=== PATIENT | male | born 1955 | race Caucasian/White ===

== ENCOUNTER → 2016-10-08 | Outpatient (CLI) | payer BC ==
[~2016-10-08] MED LIST: AMINOPHYLLINE 250 MG/10 ML VIAL IV ONE; REGADENOSON 0.4 MG/5 ML SYRINGE IV ONE
--- NOTE | 2016-10-08 11:45 | EST ---
DATE OF SERVICE: 10/08/2016 AGE: 61Y SEX: M HT: 5'8" WT: 248 lbs. Protocol Vinayak: Other: Lexiscan Cardiolite Stage: Dur. of Exercise: *Heart Rate Blood Pressure *Rest: 68 Rest: 103/52 * *Max. Achieved: 83 Maximum BP: 105/57 85% PMHR: 134 100% PMHR: 158 *METS: INDICATIONS: Chest pain. MEDICATIONS: The test is being done to evaluate symptoms of chest pain. Baseline EKG showed sinus rhythm with normal WA interval and QRS duration. Blood pressure at rest is 103/52 with a pulse rate of 68. A standard dose of Lexiscan was infused. EKGs taken during and after infusion did not reveal any significant changes from the baseline. FINAL IMPRESSION: 1. Negative Lexiscan stress test. 2. Patient did not experience any chest pain. 3. Report on the nuclear images to be given by the radiologist.
--- NOTE | 2016-10-08 13:41 | NM ---
EXAMINATION TYPE: NM stress Lexiscan cardiolite DATE OF EXAM: 10/08/2016 12:12 PM COMPARISON: Previous study dated 07/15/2014 HISTORY: Chest pain TECHNIQUE: After the intravenous administration of 10.36 mCi Tc 99m Sestamibi - Cardiolite resting S PECT images acquired 45 minutes post injection. The patient received 0.4mg Lexiscan, 27.5 mCi Tc 99m Sestamibi - Stress images obtained [address] injection FINDINGS: There is good uptake of radiopharmaceutical by the left ventricle without fixed defect or convincing inducible ischemic change. Wall motion is normal with an ejection fraction of 67%. IMPRESSION: I do not see convincing evidence of inducible ischemic change at this time.
--- NOTE | 2016-10-09 14:55 | EST ---
DATE OF SERVICE: 10/08/2016 AGE: 61Y SEX: M HT: 5'8" WT: 248 lbs. Protocol Vinayak: Other: Lexiscan Cardiolite Stage: Dur. of Exercise: *Heart Rate Blood Pressure *Rest: 68 Rest: 103/52 * *Max. Achieved: 83 Maximum BP: 105/57 85% PMHR: 134 100% PMHR: 158 *METS: INDICATIONS: Chest pain. MEDICATIONS: ADDENDUM: In the postoperative exercise period, patient developed hypotension and became pale and started feeling short of breath. He was also dizzy. He was given IV aminophylline 50 mg and also given IV fluids 250 mL. Gradually his symptoms abated and his blood pressure was stabilized. Patient was sent home in stable condition. FINAL IMPRESSION: Hypotension in the postexercise period most probably secondary to Lexiscan. Recovered with IV Aminophyllin and IV fluids.
== END | disposition home or self-care (01) ==
LOC: RADNMMAIN 09:03
PROVIDERS: ATTEND Family Medicine
DX: R07.9 Chest pain, unspecified (principal)
CPT/HCPCS: 93017; 78452; A9500; J2785

== ENCOUNTER → 2017-01-31 | Outpatient (CLI) | payer BC ==
[2017-01-31 07:44] LABS: Blood Urea Nitrogen 15 mg/dL (9-20); Non-African American GFR(MDRD) >60 (>60 ml/min/1.73 sqM)
--- NOTE | 2017-01-31 11:09 | CT ---
EXAMINATION TYPE: CT chest w con DATE OF EXAM: 01/31/2017 8:11 AM COMPARISON: 03/15/2015 HISTORY: 61-year-old male SOB TECHNIQUE: Contiguous axial scanning of the chest after the administration of 100 mL of Omnipaque 300 . Coronal/sagittal reconstructions performed. CT DLP: 739mGycm. Automatic exposure control utilized for a dose reduction. FINDINGS: The heart is normal size without pericardial effusion. Coronary vessel calcifications are present and are remarkable for coronary artery disease. Aorta is normal caliber with conventional arch vessel branching anatomy. No thoracic lymphadenopathy. Evaluation of the lung shows mild diffuse bronchial wall thickening and some strandy atelectasis at t he left base, possibly scarring as well given some of these opacities were present on prior exam. No consolidation or pleural effusion. Visualized upper abdomen redemonstrates a 1.1 cm nodule within the right adrenal gland most compatibl e with a benign adrenal adenoma given stability. Bones: Endplate spondylosis throughout the mid to lower thoracic spine. No osseous destructive proces s. IMPRESSION: 1. Mild diffuse bronchial wall thickening. Correlate for bronchitis or chronic asthma. 2. Strandy atelectasis and scarring at the left base. 3. Stable 1.1 cm right adrenal adenoma.
== END | disposition home or self-care (01) ==
LOC: RADCTMAIN 07:08
PROVIDERS: ATTEND Family Medicine
DX: J98.11 Atelectasis (principal); J98.4 Other disorders of lung; J98.09 Other diseases of bronchus, not elsewhere classified
CPT/HCPCS: 82565; 84520; 71260; Q9967

== ENCOUNTER 2018-04-13 10:47 | Emergency (ER) | payer BC ==
[2018-04-13] MEDS ORDERED: DIPH,PERTUS(ACELL)TETVAC-LF 0.5 ML VIAL IM ONE (11:19)
[2018-04-13] MEDS ORDERED: ceFAZolin IN SWFI 2 GM/20 ML SYRINGE IVP ONE (11:26)
--- NOTE | 2018-04-13 11:26 | ED ---
Wound/Laceration HPI - General Chief Complaint: Wound/Laceration Stated Complaint: lt hand finger lacs Time Seen by Provider: 04/13/18 11:12 Source: patient Mode of arrival: ambulatory Limitations: no limitations - History of Present Illness Initial Comments: 62 years old male was cutting branches of the trees in the meanwhile he injured his left hand third and the 4 fingers he has a laceration on the distal area of the third and fourth fingers he is not sure if his tetanus is up-to-date he denies any other injuries and review of system is unremarkable - Related Data Home Medications Medication Instructions Recorded Confirmed Albuterol Sulfate [Proair Hfa] 1 - 2 puff INHALATION RT-Q6H PRN 05/21/15 Atorvastatin [Lipitor] 20 mg PO HS 05/21/15 04/13/18 Budesonide/Formoterol Fumarate 2 puff INHALATION RT-DAILY PRN 05/21/15 04/13/18 [Symbicort 160-4.5 Mcg Inhaler] Enalapril/Hydrochlorothiazide 0.5 tab PO DAILY 05/21/15 04/13/18 [Vaseretic 10-25 mg] HYDROcodone/APAP 10-325MG [[facility] 1 tab PO Q6H PRN 05/21/15 04/13/18 10] Albuterol Nebulized [Ventolin 1 applicate INHALATION RT-Q6H PRN 08/28/15 Nebulized] Invokana (Unknown Dose) 1 tab PO QAM 04/13/18 04/13/18 Previous Rx's Medication Instructions Recorded Amoxic-Pot Clav 875-125Mg 1 tab PO Q12HR #10 tablet 04/13/18 [Augmentin 875-125] Allergies Allergy/AdvReac Type Severity Reaction Status Date / Time No Known Allergies Allergy Verified 04/13/18 11:10 Review of Systems ROS Statement: Those systems with pertinent positive or pertinent negative responses have been documented in the HPI. ROS Other: All systems not noted in ROS Statement are negative. Past Medical History Past Medical History: COPD, Diabetes Mellitus, GERD/Reflux, Hyperlipidemia, Hypertension Additional Past Medical History / Comment(s): hx ulcer age 11, diverticulitis, diarrhea, pain neck radiating down left arm History of Any Multi-Drug Resistant Organisms: None Reported Past Surgical History: Adenoidectomy, Orthopedic Surgery, Tonsillectomy Additional Past Surgical History / Comment(s): rt knee surgery, rectal fissure repair, [facility] pain clinic, lt thumb trigger finger release, colonosocpy, Past Anesthesia/Blood Transfusion Reactions: Family History of Problems w/ Anesthesia, Postoperative Nausea & Vomiting (PONV) Additional Past Anesthesia/Blood Transfusion Reaction / Comment(s): BP dropped and got nauseated with last pain clinic procedure Past Psychological History: Anxiety Smoking Status: Never smoker Past Alcohol Use History: None Reported Past Drug Use History: None Reported - Past Family History Brother(s) Family Medical History: Coronary Artery Disease (CAD), Diabetes Mellitus General Exam - General Exam Comments Initial Comments: General: The patient is awake and alert, in no distress, and does not appear acutely ill. Skin: Skin is warm and dry and no rashes or lesions are noted except his third and fourth fingers third and fourth fingertips have recontacted and lacerations near the nail bed is intact x-ray revealed a hairline fracture at the base of the distal phalanx Eye: Pupils are equal, round and reactive to light, extra-ocular movements are intact; there is normal conjunctiva bilaterally. Ears, nose, mouth and throat: There are moist mucous membranes and no oral lesions. Neck: The neck is supple, there is no tenderness or JVD. Cardiovascular: There is a regular rate and rhythm. No murmur, rub or gallop is appreciated. Respiratory: To auscultation bilateral, no wheezing no rhonchi no distress respiratory jane noticed Gastrointestinal: Soft, non-distended, non-tender abdomen without masses or organomegaly noted. There is no rebound or guarding present. Bowel sounds are unremarkable. Back: There is no tenderness to palpation in the midline. There is no obvious deformity. Musculoskeletal: Normal ROM, no tenderness, There is no pedal edema. There is no calf tenderness or swelling. No cords were appreciated. Neurological: CN II-XII intact, Cranial nerves III through XII are intact. There are no obvious motor or sensory deficits. Coordination appears grossly intact. Speech is normal. Psychiatric: Cooperative, appropriate mood & affect, normal judgment. Limitations: no limitations Course Vital Signs 04/13/18 10:51 Temperature 97.6 F Pulse Rate 89 Respiratory 16 Rate Blood Pressure 162/92 O2 Sat by Pulse 98 Oximetry for the hairline fracture of the distal part of his third finger we did the aluminum splint to support the nondisplaced fracture. Procedures - Laceration Laceration #1 Consent Obtained: verbal consent Time Out Performed: Yes Site: hand Size (cm): 4 Description: irregular Depth: simple, single layer Anesthetic Used: lidocaine 1% Anesthesia Technique: nerve block Pre-repair: wound explored, irrigated extensively Type of Sutures: nylon Size of Sutures: 4-0, 5-0 Technique: simple, interrupted Complications: bleeding Patient Tolerated Procedure: well (Required 7 stitches to approximate the skin him a part of the skin was missing and part of the skin was shredded) Laceration #2 Consent Obtained: verbal consent Time Out Performed: Yes Indication: laceration Site: hand Size (cm): 4 Description: irregular Depth: simple, single layer Anesthetic Used: lidocaine 1% Anesthesia Technique: local infiltration Pre-repair: wound explored, irrigated extensively Type of Sutures: nylon Size of Sutures: 4-0, 5-0 Technique: simple, interrupted Complications: bleeding Disposition Clinical Impression: Laceration, Finger fracture Disposition: HOME SELF-CARE Condition: Good Instructions: Laceration (ED) Additional Instructions: The hand elevated to reduce the swelling use Tylenol 1 g by mouth every 6 when necessary for the pain returned to the ER if symptoms get worse Prescriptions: Amoxic-Pot Clav 875-125Mg [Augmentin 875-125] 1 tab PO Q12HR #10 tablet Is patient prescribed a controlled substance at d/c from ED?: No Referrals: Timothy Nieto MD [Primary Care Provider] - 1-2 days Barney Cooper DO [Doctor of Osteopathic Medicine] - 1-2 days
[2018-04-13] MEDS ORDERED: LIDOCAINE 1% INJ 10MG/ML (20 ML MDV) SQ STA (11:27)
[2018-04-13] MEDS ORDERED: ceFAZolin 1,000 MG in DEXTROSE/WATER 1 50ML.BAG IVPB STA (11:28)
--- NOTE | 2018-04-13 11:53 | XR ---
EXAMINATION TYPE: XR hand complete LT DATE OF EXAM: 04/13/2018 COMPARISON: NONE HISTORY: Laceration to the third and fourth digits TECHNIQUE: Three views are submitted. FINDINGS: Soft tissue injury involving the distal margin of the third and fourth digits. Arthropathy of the fir st MCP joint. Arthropathy of the DIP joint of the third digit. Tiny bony density along the ulnar surf shawn distal phalanx third digit which may represent a small chip fracture. It does appear to be within linear lucency through the cortex of the distal phalanx on the frontal and oblique views. IMPRESSION: 1. Soft tissue injury with findings suggestive of a nondisplaced hairline fracture near the base of t he distal phalanx third digit.
[2018-04-13] MEDS ORDERED: ceFAZolin 1,000 MG VIAL IM STA (12:17)
[2018-04-13 14:25] VITALS: BP 123/77; PULSE 71; RESP 18; TEMP 98.1
== END 2018-04-13 14:25 | disposition home or self-care (01) ==
LOC: EC 10:47
DX: S62.663A Nondisplaced fracture of distal phalanx of left middle finger, initial encounter for closed fracture (principal); S61.213A Laceration without foreign body of left middle finger without damage to nail, initial encounter; S61.215A Laceration without foreign body of left ring finger without damage to nail, initial encounter; S61.412A Laceration without foreign body of left hand, initial encounter; J44.9 Chronic obstructive pulmonary disease, unspecified; E11.9 Type 2 diabetes mellitus without complications; E78.5 Hyperlipidemia, unspecified; I10 Essential (primary) hypertension; Z23 Encounter for immunization; Z98.890 Other specified postprocedural states; Z79.84 Long term (current) use of oral hypoglycemic drugs; Z79.899 Other long term (current) drug therapy; W29.3XXA Contact with powered garden and outdoor hand tools and machinery, initial encounter; Y93.89 Activity, other specified
CPT/HCPCS: 73130; 90715; 99283; 12004; 90471; 96372; J0690; J2001

== ENCOUNTER → 2018-07-22 | Outpatient (CLI) | payer BC ==
--- NOTE | 2018-07-23 04:19 | MR ---
EXAMINATION TYPE: MR shoulder RT wo con DATE OF EXAM: 07/22/2018 COMPARISON: None HISTORY: Rt shoulder Pain, Incomplete rotator cuff tear or rupture TECHNIQUE: Multiplanar, multisequence imaging of the right shoulder is performed without contrast. FINDINGS: Subscapularis tendon is intact. There is some fluid around the biceps tendon. There is mild shoulder joint effusion. The glenoid lala appear intact. Biceps tendon appears intact. There is obliteration of the subacromial joint space. There is retraction of the supraspinatus tendon . There is extensive spurring at the acromion and the AC joint. I see no fracture. There is no focal bone destruction. IMPRESSION: Severe subacromial joint space narrowing and impingement with large rotator cuff tear and retraction of the supraspinatus tendon. Shoulder joint effusion.
== END | disposition home or self-care (01) ==
LOC: RADMRIMAIN 21:09
PROVIDERS: ATTEND Family Medicine
DX: M75.111 Incomplete rotator cuff tear or rupture of right shoulder, not specified as traumatic (principal); M25.811 Other specified joint disorders, right shoulder

== ENCOUNTER → 2018-09-11 | Day surgery (SDC) | payer BC ==
[2018-09-09 15:50] VITALS: BMI 34.2
--- NOTE | 2018-09-10 11:23 | HP ---
HISTORY AND PHYSICAL CHIEF COMPLAINT: Right shoulder pain. HISTORY OF PRESENT ILLNESS: The patient is a 63-year-old right-hand dominant gentleman on disability who presents with right shoulder pain, has progressed over the past 6 months. He notes it started after lifting weights. He is having pain with attempted overhead use. He notes significant weakness as well. He is having significant night symptoms. He has tried an injection along with medications with only partial temporary relief. PAST MEDICAL HISTORY: Significant for COPD, hypertension, and arthritis. PAST SURGICAL HISTORY: Significant for trigger finger release. CURRENT MEDICATIONS: 1. Enalapril. 2. Gabbs. 3. Symbicort. 4. Atorvastatin. He denies drug allergies. FAMILY HISTORY: Significant for heart disease. SOCIAL HISTORY: Significant for previous tobacco use; however, he quit in 1974. REVIEW OF SYSTEMS: A 16 point review of systems otherwise reviewed and is noncontributory. PHYSICAL EXAMINATION: On examination, the patient is approximately 5 foot 8, 225 pounds of endomorphic habitus. HEENT exam is nonfocal. Neck is supple. On examination of the right shoulder, he is tender about the anterior subacromial space. He has moderate subacromial crepitus. Active range of motion, forward elevation 125 degrees, external rotation with arm at side 45 degrees, internal rotation to L2. He has a positive impingement, positive Neer test, and positive Speed test. His distal neurovascular exam otherwise appears intact in the right upper extremity. MRI report from 07/22/2018, the right shoulder shows a retracted large rotator cuff tear. There is significant fluid around the proximal biceps as well. IMPRESSION: 1. Right shoulder impingement with retracted large rotator cuff tear. 2. Right proximal bicipital tendinosis. 3. History of chronic obstructive pulmonary disease. RECOMMENDATIONS: I talked to the patient at length regarding his condition and treatment options. At this point, he remains quite symptomatic and limited because of pain and weakness. After thorough discussion, he opts to proceed with surgery. We will plan to proceed with arthroscopic evaluation with possible rotator cuff repair versus debridement along with possible biceps tenotomy and subacromial decompression. Risks and benefits were discussed at length in layman's terms. We will likely perform that as an outpatient procedure. MMODL / IJN: [id number] /
[~2018-09-11] MED LIST changes: -AMINOPHYLLINE 250 MG/10 ML VIAL IV ONE; +DEXAMETHASONE SOD PHOSPHATE 10 MG/ML 1 ML VIAL IV ONE; +EPINEPHrine (PF) 1 ML in SODIUM CHLORIDE 0.9% IRRIGATIO 3,000 ML IRRIGATION ONE; +LACTATED RINGERS 1,000 ML IV SCH; +LIDOCAINE 1% 20 ML VIAL (10MG/ML) FOR IV START INTRADERMA PRN; +LIDOCAINE 1% INJ 10MG/ML (20 ML MDV) ONE; +MIDAZOLAM 2 MG/2 ML VIAL IV PRN; +MIDAZOLAM 2 MG/2 ML VIAL ONE; +ONDANSETRON 4 MG/2 ML VIAL IVP ONE; +PROPOFOL 10 MG/ML 20 ML VIAL IV ONE; -REGADENOSON 0.4 MG/5 ML SYRINGE IV ONE; +SCOPOLAMINE 1.5MG/72HR PATCH TRANSDERM ONE; +SUCCINYLCHOLINE CHLORIDE 100 MG/5 ML SYR IV ONE; +ceFAZolin IN SWFI 2 GM/20 ML SYRINGE IVP ONE; +ePHEDrine SULFATE/0.9% NACL/PF 50 MG/5 ML SYRINGE IV ONE; +fentaNYL (PF) 50 MCG/ML 2 ML AMP IV ONE; +fentaNYL (PF) 50 MCG/ML 2 ML AMP ONE
[2018-09-11 06:29] VITALS: RESP 16
[2018-09-11 06:38] LABS: Glucose,Whole Blood 98 mg/dL (75-99)
--- NOTE | 2018-09-11 08:12 | P.ONQ ---
Anesthesiology Proc Note - PNB - Peripheral Nerve Block Performed Right Interscalene Procedure Start Time: 07:00 Procedure Stop Time: :07 Indication: Acute Post-Operative Pain, Requested by physician Sedation Type: Sedate with meaningful contact maintained Preparation: Sterile Prep Position: Supine Catheter: None Needle Types: On-Q Needle Size: 100mm (4") Needle Gauge: 21 Technique: Ultrasound Injectate: 0.5% Ropivacaine (see comment for volume) Blood Aspirated: No Pain Paresthesia on Injection Noted: No Resistance on Injection: Normal Events: Uneventful and Well Tolerated
[2018-09-11 09:42] VITALS: TEMP 97
--- NOTE | 2018-09-11 09:43 | P.OP ---
Date of Procedure: 09/11/18 Preoperative Diagnosis: Symptomatic right rotator cuff tear Postoperative Diagnosis: Large retracted rotator cuff tear/high-grade partial-thickness tear long head of the biceps/inferior labral tear Procedure(s) Performed: Right shoulder arthroscopic subacromial decompression/rotator cuff repair/ biceps tenotomy/inferior labral debridement Implants: Arthrex 5.5 mm swivel lock anchor x 1, 4.75 mm swivel lock anchor 3. Anesthesia: MICHAEL regional Surgeon: Aaron Sorenson Shredder/Granulator Operator #1: Jared Rod Estimated Blood Loss (ml): 10 Pathology: none sent Condition: stable Disposition: PACU Indications for Procedure: The patient's a 63-year-old male who presents with progressive right shoulder pain with the past 6 months despite inserted measures. An MRI showed evidence of a retracted large rotator cuff tear. A discussion of the risks and benefits of operative intervention versus continued conservative measures was made with patient. He opted to proceed with surgery. Operative risks to include infection, neurovascular injury, development of blood clots, possible incomplete resolution of symptoms, possible worsening of symptoms and need for subsequent procedures was discussed. Informed consent was obtained. Operative Findings: As below Description of Procedure: The patient was brought to the operating room, and after induction of general anesthesia was placed in a beachchair position. A preoperative interscalene block was placed for postoperative analgesia. I examined the right shoulder. There was no gross block to passive motion or gross glenohumeral instability. The right upper extremity was prepped and draped in normal fashion. The bony outlines the acromion, distal clavicle, and coracoid process were outlined with a skin marker. The glenohumeral joint was inflated with 50 mL of saline utilizing a spinal needle from posterior approach. A posterior portal was made through a 5 mm skin incision 1 cm medial and inferior to the posterior lateral border time. A blunt trocar was used to easily into the joint. Diagnostic arthroscopy was performed. An anterior portal was made just lateral to the coracoid process entering the joint above the subscapularis tendon. The subscapularis tendon appeared to be intact. Anterior labrum was intact. The inferior recess was inspected. An inferior labral tear was noted that was debrided back to stable base with a motorized shaver. The posterior labrum was intact. There was a high-grade partial-thickness tear of the long head of the biceps involving interarticular portion. I elected to proceed with release at this point. This was released from the superior labrum with electrocautery and allowed to retract to the bicipital groove. On inspection the rotator cuff a large retracted tear involving the supraspinatus and infraspinatus tendons were noted. A lateral portal was made 2 centimeters inferior to the anterior lateral border of the acromion. The rotator cuff was then mobilized with a traction suture. A portion of this was brought back to the greater tuberosity. The soft tissue on the undersurface of the acromion was debrided with a motorized shaver and electrocautery clearly defining the anterior medial and lateral borders as well as the distal clavicle. An anterior inferior acromioplasty was performed with a motorized skye starting anterolateral, then extending this posteriorly, then extending this medially. I converted to a flat acromion and this was verified in the posterior and lateral viewing portals. The greater tuberosity was lightly decorticating with a shaver down to a bleeding bony surface. An accessory superior lateral portal was made just off the lateral edge of the acromion for anchor placement. 2 anchors were then placed just off the articular surface with the appropriate starting awl. One 4.75 mm and one 5.5 mm preloaded with #2 fiber tape were placed. Good purchase was obtained. These fiber tapes were then passed the rotator cuff with a scorpion suture passer. A lateral row was created crisscrossing these tapes. 4.75 mm swivel lock anchors were placed laterally. Good purchase was obtained. Final arthroscopic view showed adequate partial repair of the rotator cuff. The arthroscope was then removed. The portals were closed with simple 3-0 nylon sutures. A sterile dressing was applied in addition to an abductor brace. The patient was then awoken from general anesthesia and transferred to recovery room in good condition. Blood loss was estimated at 10 mL. No complications were incurred. Sponge and needle counts were correct in the case. Geoffrey RIVERA assisted and the major components of the case to include arm positioning, anchor placement, and rotator cuff repair.
[2018-09-11] MEDS: HYDROmorphone 0.5 MG/0.5 ML SYRINGE IVP PRN ×4 (10:04→10:26)
[2018-09-11 11:19] VITALS: BP 112/58; PULSE 86
== END | disposition home or self-care (01) ==
LOC: OR 05:58
PROVIDERS: ATTEND Orthopaedic Surgery
DX: M75.121 Complete rotator cuff tear or rupture of right shoulder, not specified as traumatic (principal); S46.111A Strain of muscle, fascia and tendon of long head of biceps, right arm, initial encounter; X58.XXXA Exposure to other specified factors, initial encounter; I10 Essential (primary) hypertension; F41.9 Anxiety disorder, unspecified; J43.9 Emphysema, unspecified; E78.00 Pure hypercholesterolemia, unspecified; J98.4 Other disorders of lung; E11.9 Type 2 diabetes mellitus without complications; E55.9 Vitamin D deficiency, unspecified; M46.92 Unspecified inflammatory spondylopathy, cervical region; Z87.891 Personal history of nicotine dependence; Z79.84 Long term (current) use of oral hypoglycemic drugs; Z79.891 Long term (current) use of opiate analgesic; Z79.51 Long term (current) use of inhaled steroids; Z79.899 Other long term (current) drug therapy
CPT/HCPCS: 64415; 29826; 29827; C1713 ×4; C1894; J2250; J1100; J2405; J0171; J2001; J3010; J0330; J2704; J1170; J0690

== ENCOUNTER → 2022-01-11 | Outpatient (CLI) | payer MEDICARE ==
--- NOTE | 2022-01-11 09:34 | US ---
EXAMINATION TYPE: US duplex aorta DATE OF EXAM: 01/11/2022 COMPARISON: NONE CLINICAL HISTORY: Z13.6 Screening. EXAM MEASUREMENTS: Abdominal Aorta: Proximal: obscured by overlying bowel gas Mid: 1.8cm by 1.5 cm Distal: 1.4cm by 1.4 cm Bifurcation: Right: 0.9cm by 0.9 cm Left 1.1cm by 0.9 cm Aorta successfully visualized through the bifurcation. IMPRESSION: No ultrasound evidence for greater than 3.0 cm AAA
== END | disposition home or self-care (01) ==
LOC: RADUSWWP 08:55
PROVIDERS: ATTEND Family Medicine
DX: Z13.6 Encounter for screening for cardiovascular disorders (principal)
CPT/HCPCS: 93979

== ENCOUNTER 2022-02-05 07:00 | Day surgery (SDC) | payer MEDICARE ==
[2022-02-01 15:31] VITALS: BMI 34.2
[~2022-02-05 07:00] MED LIST changes: -DEXAMETHASONE SOD PHOSPHATE 10 MG/ML 1 ML VIAL IV ONE; -EPINEPHrine (PF) 1 ML in SODIUM CHLORIDE 0.9% IRRIGATIO 3,000 ML IRRIGATION ONE; +LIDOCAINE 1% (10MG/ML) FOR IV START INTRADERMA PRN; -LIDOCAINE 1% 20 ML VIAL (10MG/ML) FOR IV START INTRADERMA PRN; -LIDOCAINE 1% INJ 10MG/ML (20 ML MDV) ONE; -MIDAZOLAM 2 MG/2 ML VIAL IV PRN; -MIDAZOLAM 2 MG/2 ML VIAL ONE; -ONDANSETRON 4 MG/2 ML VIAL IVP ONE; -PROPOFOL 10 MG/ML 20 ML VIAL IV ONE; -SCOPOLAMINE 1.5MG/72HR PATCH TRANSDERM ONE; -SUCCINYLCHOLINE CHLORIDE 100 MG/5 ML SYR IV ONE; -ceFAZolin IN SWFI 2 GM/20 ML SYRINGE IVP ONE; -ePHEDrine SULFATE/0.9% NACL/PF 50 MG/5 ML SYRINGE IV ONE; -fentaNYL (PF) 50 MCG/ML 2 ML AMP IV ONE; -fentaNYL (PF) 50 MCG/ML 2 ML AMP ONE
[2022-02-05 07:32] VITALS: TEMP 98
[2022-02-05 07:44] LABS: Glucose,Whole Blood 88 mg/dL (75-99)
[2022-02-05 07:45] LABS: Glucose,Whole Blood 88 mg/dL (75-99)
[2022-02-05] MEDS ORDERED: PROPOFOL 10 MG/ML 20 ML VIAL IV ONE (07:51)
--- NOTE | 2022-02-05 08:04 | P.PCN ---
Date of Procedure: 02/05/22 Procedure(s) Performed: BRIEF HISTORY: Patient is a 66-year-old pleasant white male scheduled for an elective colonoscopy as a part of screening for colorectal neoplasia. PROCEDURE PERFORMED: Colonoscopy. PREOPERATIVE DIAGNOSIS: Screening for colon cancer. IV sedation per Anesthesia. PROCEDURE: After informed consent was obtained, the patient, was brought into the endoscopy unit. IV sedation was administered by Anesthesia under continuous monitoring. Digital rectal examination was normal. Initially the Olympus CF-160 flexible video colonoscope was then inserted in the rectum, gradually advanced into the cecum without any difficulty. Careful examination was performed as the scope was gradually being withdrawn. Ileocecal valve and the appendiceal orifice were visualized and appeared normal. Prep was excellent. Mucosa of the cecum, ascending colon, transverse colon, descending colon, sigmoid colon, and rectum appeared normal. Scattered sigmoid diverticula seen. Retroflexion was performed in the rectum and no lesions were seen. The patient tolerated the procedure well. IMPRESSION: Normal-appearing colon from rectum to cecum with no evidence of colorectal neoplasia. Scattered diverticulosis RECOMMENDATIONS: Findings of this examination were discussed with the patient as well as a family. He was advised to have a repeat screening colonoscopy in 10 years.
[2022-02-05 08:10] VITALS: PULSE 71; RESP 16
[2022-02-05 08:21] VITALS: BP 120/75
== END 2022-02-05 08:43 | disposition home or self-care (01) ==
LOC: ORWHC2ENDO 07:00
PROVIDERS: ATTEND Internal Medicine Gastroenterology
DX: Z12.11 Encounter for screening for malignant neoplasm of colon (principal); K57.90 Diverticulosis of intestine, part unspecified, without perforation or abscess without bleeding
CPT/HCPCS: G0121; J2704

== ENCOUNTER → 2023-01-10 | Outpatient (CLI) | payer MEDICARE ==
--- NOTE | 2023-01-10 15:14 | NM ---
EXAMINATION TYPE: NM stress cardiolite complete DATE OF EXAM: 01/10/2023 COMPARISON: 10/08/2016 CLINICAL INDICATION: Male, 67 years old with history of R25.1; TECHNIQUE: After the intravenous administration of 10.1 mCi Tc 99m Sestamibi - Rest images obtained 45 minutes post injection. The patient exercised using a VIKRAM protocol and 1 minute prior to peak exercise was injected with 24.1 mCi Tc 99m Sestamibi - Stress images obtained 45 minutes post injecti on. FINDINGS: Targeted heart rate was achieved during performance of the study. Review of stress and rest SPECT lizeth ges demonstrates no distinct perfusion abnormality. Gated analysis shows normal wall motion with an estimated left ventricular ejection fraction of 60 %. IMPRESSION: No scintigraphic evidence for reversible ischemia
--- NOTE | 2023-01-10 19:14 | CA ---
Exercise Nuclear Stress Test Report Name: Eduardo Cristina Exam Date: 01/10/2023 11:08 Exam Location: [place] Stress Ht (in): 68 Wt (lb): 213 BSA: 2.10 Ordering Phys: Antonio Mcnair MD Referring Phys: Xu, Technologist: Dom Jennings Age: 67 Gender: M : 1955 Procedure CPT: Indications: R25.1 ICD-10 Codes: Patient History: Medications: ENALAPRIL, ATORVASTATIN Meds past 24 hrs: Pretest Chest Pain: STRESS TEST Vinayak Protocol Exercise Duration (min:sec): 06:[address] Depressions (mm): Angina Score: Otto Score: Resting HR (bpm): 78 Peak HR (bpm): 134 Resting BP (mmHg): 118 / 66 Peak BP (mmHg): 196 / 69 MPHR: 152 Target HR: 129 % MPHR: 88 METS: 7.1 Total Dose: Peak Dose: Atropine: Double Product: 85678 BP Response: Stress Termination: Reached target heart rate Stress Symptoms: NO SYMPTOMS Stress Summary: ECG ANALYSIS Resting ECG: Stress ECG: CONCLUSIONS Excellent exercise tolerance Normal EKG in response to exercise Dr. [place] Mason MD (Electronically Signed) Final Date: 10 January 2023 19:13
== END | disposition home or self-care (01) ==
LOC: RADNMMAIN 07:58
PROVIDERS: ATTEND Internal Medicine
DX: R93.1 Abnormal findings on diagnostic imaging of heart and coronary circulation (principal)
CPT/HCPCS: 93017; 78452; A9500

== ENCOUNTER → 2023-03-10 | Outpatient (CLI) | payer MEDICARE ==
--- NOTE | 2023-03-12 10:07 | CA ---
Transthoracic Echo Report Name: Eduardo Cristina Age: 67 Gender: M : 1955 Exam Date: 03/10/2023 14:58 Exam Location: [facility] Ht (in): 68 Wt (lb): 211 Ordering Physician: Antonio Mcnair MD Attending/Referring Phys: Cosmetic Manager Sarah Villa RDCS Procedure CPT: Indications: I25.10 Cardiac Hx: Technical Quality: Fair Contrast 1: Total Dose (mL): Contrast 2: Total Dose (mL): MEASUREMENTS (Male / Female) Normal Values 2D ECHO LV Diastolic Diameter PLAX 4.2 cm 4.2 - 5.9 / 3.9 - 5.3 cm LV Systolic Diameter PLAX 2.3 cm IVS Diastolic Thickness 1.0 cm 0.6 - 1.0 / 0.6 - 0.9 cm LVPW Diastolic Thickness 1.2 cm 0.6 - 1.0 / 0.6 - 0.9 cm LV Relative Wall Thickness 0.5 RV Internal Dim ED PLAX 3.9 cm LA Volume 84.6 cm??? 18 - 58 / 22 - 52 cm??? M-MODE Aortic Root Diameter MM 4.1 cm LA Systolic Diameter MM 4.7 cm LA Ao Ratio MM 1.1 AV Cusp Separation MM 2.1 cm DOPPLER AV Peak Velocity 123.9 cm/s AV Peak Gradient 6.1 mmHg AV Mean Velocity 89.6 cm/s AV Mean Gradient 3.8 mmHg AV Velocity Time Integral 24.2 cm LVOT Peak Velocity 89.0 cm/s LVOT Peak Gradient 3.2 mmHg LVOT Velocity Time Integral 18.9 cm MV Peak Velocity 107.0 cm/s MV Peak Gradient 4.6 mmHg MV Mean Velocity 63.2 cm/s MV Mean Gradient 1.8 mmHg MV Velocity Time Integral 22.8 cm MV Area PHT 2.1 cm??? Mitral E Point Velocity 73.6 cm/s Mitral A Point Velocity 108.5 cm/s Mitral E to A Ratio 0.7 MV Deceleration Time 357.3 ms MV E' Velocity 7.1 cm/s Mitral E to MV E' Ratio 10.3 TR Peak Velocity 228.5 cm/s TR Peak Gradient 20.9 mmHg Right Ventricular Systolic Press 25.9 mmHg FINDINGS Left Ventricle Normal Left ventricular size, wall thickness, systolic function with no obvious regional wall motion abnormalities. Normal Left ventricular diastolic filling pattern. Left ventricular ejection fraction is estimated at 55-60 %. Right Ventricle Mild right ventricular dilatation. Right ventricular systolic pressure within normal limits. Right Atrium Normal right atrial size. Left Atrium Severely increased left atrial volume. Mildly increased left atrial area. Mitral Valve Moderate mitral annular calcification. Minimal mitral stenosis. Mild mitral regurgitation. Aortic Valve Trileaflet aortic valve. No aortic valve stenosis or regurgitation. Tricuspid Valve Structurally normal tricuspid valve. Mild tricuspid regurgitation. Pulmonic Valve Trace pulmonic regurgitation. Pericardium No pericardial effusion. Aorta Normal size aortic root and proximal ascending aorta. CONCLUSIONS Normal LV size and systolic function. Mild mitral annular calcification mild mitral regurgitation and there is thickening of posterior mitral leaflet noted. Aortic valve sclerosis without restriction. No pericardial effusion. No significant pulmonary hypertension Previewed by: Dr. Anahi Post MD (Electronically Signed) Final Date: 12 March 2023 10:06
== END | disposition home or self-care (01) ==
LOC: RADECHMAIN 14:53
PROVIDERS: ATTEND Internal Medicine
DX: I08.0 Rheumatic disorders of both mitral and aortic valves (principal); I25.10 Atherosclerotic heart disease of native coronary artery without angina pectoris
CPT/HCPCS: 93306

== ENCOUNTER → 2024-05-27 | Outpatient (CLI) | payer MEDICARE ==
[~2024-05-27] MED LIST changes: +IODINE/POTASSIUM IODIDE 14 ML BOTTLE ONE; -LACTATED RINGERS 1,000 ML IV SCH; -LIDOCAINE 1% (10MG/ML) FOR IV START INTRADERMA PRN
--- NOTE | 2024-05-27 16:42 | NM ---
EXAMINATION TYPE: NM DatScan Brain SPECT DATE OF EXAM: 05/27/2024 COMPARISON: NONE CLINICAL INDICATION: Male, 68 years old with history of R25.1 TREMOR, UNSPECIFIED; TECHNIQUE: 10 drops of Lugol's solution was administered 1 hour prior to injection as a thyroid bloc mauro agent. After the administration of 4.28 mCi I-123 Ioflupane DaTscan. Images obtained 3 hours p ost injection. SPECT images of the brain were acquired with axial and coronal reconstructions. FINDINGS: There is symmetrical uptake within the bilateral corpus striatum. Background activity is relatively n ormal. IMPRESSION: This appearance can be seen in normal individuals and also in those with essential tremor. No scintig raphic findings of Parkinson's disease or parkinsonian syndrome.
== END | disposition home or self-care (01) ==
LOC: RADNMMAIN 10:38
PROVIDERS: ATTEND Internal Medicine
DX: R25.1 Tremor, unspecified (principal)
CPT/HCPCS: 78803

== ENCOUNTER → 2025-01-20 | Outpatient (CLI) | payer MEDICARE ==
--- NOTE | 2025-01-20 15:38 | US ---
EXAMINATION TYPE: US carotid duplex BILAT DATE OF EXAM: 01/20/2025 COMPARISON: NONE CLINICAL INDICATION: Male, 69 years old with history of R58 HEMORRHAGE I65.23 CAROTID STENOSIS; carot id stenosis Additional History: I65.- Occlusion/stenosis of specified precerebral artery, specified laterality TECHNIQUE: Grayscale, color Doppler and spectral Doppler evaluation of the bilateral carotid systems and vertebral arteries. Indirect Doppler criteria was utilized. FINDINGS: EXAM MEASUREMENTS: RIGHT: Peak Systolic Velocity (PSV) cm/sec ----- Right CCA: 63.0 ----- Right ICA: 131 ----- Right ECA: 154 ICA/CCA ratio: 2.07 RIGHT: End Diastole cm/sec ----- Right CCA: 14.2 ----- Right ICA: 31.5 ----- Right ECA: 16.8 LEFT: Peak Systolic Velocity (PSV) cm/sec ----- Left CCA: 82.4 ----- Left ICA: 89.7 ----- Left ECA: 181 ICA/CCA ratio: 1.08 LEFT: End Diastole cm/sec ----- Left CCA: 26.2 ----- Left ICA: 31.5 ----- Left ECA: 18.7 VERTEBRALS (direction of flow): Right Vertebral: Antegrade Left Vertebral: Antegrade Rhythm: Normal MAKER UP FOLDING NOTES: plaque in bilateral bulbs. No elevated velocities seen Color Doppler imaging shows patency with blood flow throughout the carotid artery. Spectral waveforms are within normal limits. IMPRESSION: Right: Less than 50% stenosis of the carotid bifurcation. Left: No hemodynamically significant stenosis. Criteria for Assigning % of Stenosis / Diameter reduction (Estimation based on the indirect measurements of the internal carotid artery velocities (ICA PSV). 1. Normal (no stenosis)=ICA PSV < 180 cm/s: ratio < 2.0: ICA EDV<40 cm/s. 2. Less than 50% stenosis=ICA PSV < 180 cm/s: ratio < 2.0: ICA EDV<40 cm/s. 3. 50 to 69% stenosis=ICA PSV of 180 to 230 cm/s: ration 2.0 ? 4.0: ICA EDV 40-100 cm/s. PSV 125-180 cm/sec and ICA/CCA PSV Ratio ? 2.0 is also consistent with 50-69% stenosis 4. Greater than 70% stenosis to near occlusion= ICA PSV > 230 cm/s: ratio > 4.0: ICA EDV > 100 cm/s. 5. Near occlusion= ICA PSV velocities may be low or undetectable: variable ratio and ICA EDV. 6. Total occlusion=unable to detect flow. [facility], , 01/20/2025 3:36 PM
--- NOTE | 2025-01-21 07:31 | US ---
EXAMINATION TYPE: US venous doppler duplex LE BI DATE OF EXAM: 01/20/2025 2:33 PM COMPARISON: NONE CLINICAL INDICATION: Male, 69 years old with history of R58 HEMORRHAGE I65.23 CAROTID STENOSIS; bruis ing on legs, Pain TECHNIQUE: The lower extremity deep venous system is examined utilizing real time linear array sonog patricia with graded compression, color doppler sonography, and spectral doppler. SIDE PERFORMED: Bilateral FINDINGS: VESSELS IMAGED: Common Femoral Vein Deep Femoral Vein Greater Saphenous Vein * Femoral Vein Popliteal Vein Small Saphenous Vein * Proximal Calf Veins (* superficial vessels) Right Leg: No evidence for DVT, Color Doppler imaging shows patency of the vessels. Spectral wavefor ms are within normal limits. Left Leg: No evidence for DVT, Color Doppler imaging shows patency of the vessels. Spectral waveform s are within normal limits. IMPRESSION: No ultrasound evidence for deep venous thrombosis. [facility], , 01/21/2025 7:28 AM
== END | disposition home or self-care (01) ==
LOC: RADUSWWP 14:30
PROVIDERS: ATTEND Internal Medicine
DX: R58 Hemorrhage, not elsewhere classified (principal); I65.23 Occlusion and stenosis of bilateral carotid arteries
CPT/HCPCS: 93880; 93970